=== PATIENT | female | born 1985 | race African-American/Black ===

== ENCOUNTER → 2017-01-14 | Outpatient (CLI) | payer BC | LOC: COL.RAD 08:13 | DX: K80.20 Calculus of gallbladder without cholecystitis without obstruction (principal); K21.9 Gastro-esophageal reflux disease without esophagitis ==

== ENCOUNTER 2017-03-03 08:59 | Emergency (ER) | payer BC, OTHER ==
[~2017-03-03] VITALS: Ht 165.1 cm; Wt 56.8 kg
[2017-03-03] MEDS ORDERED: ACIPHEX20 MG PO (09:12)
[2017-03-03 12:20] VITALS: BP 135/68; PULSE 81; TEMP 98.5
[2017-03-04] MEDS ORDERED: NORCO 325 MG-51 TAB PO (08:35)
== END 2017-03-03 11:27 | disposition home or self-care (01) ==
LOC: COL.ER 08:59
DX: S80.12XA Contusion of left lower leg, initial encounter (principal); S80.11XA Contusion of right lower leg, initial encounter; S40.021A Contusion of right upper arm, initial encounter; S10.91XA Abrasion of unspecified part of neck, initial encounter; S50.811A Abrasion of right forearm, initial encounter; S20.312A Abrasion of left front wall of thorax, initial encounter; S20.311A Abrasion of right front wall of thorax, initial encounter; S20.419A Abrasion of unspecified back wall of thorax, initial encounter; S00.81XA Abrasion of other part of head, initial encounter; Z23 Encounter for immunization; Y04.2XXA Assault by strike against or bumped into by another person, initial encounter; Y07.01 Husband, perpetrator of maltreatment and neglect; Y92.009 Unspecified place in unspecified non-institutional (private) residence as the place of occurrence of the external cause

== ENCOUNTER 2017-03-04 05:53 | Day surgery (SDC) | payer BC ==
[~2017-03-04] VITALS: Ht 165.1 cm; Wt 56.6 kg
[2017-03-04] VITALS (8 sets, daily range): BP systolic 91–119; BP diastolic 46–72; PULSE 66–84; TEMP 98.6–99
[~2017-03-04 05:53] MED LIST: ACIPHEX20 MG PO
[2017-03-04] MEDS ORDERED: NORCO 325 MG-51 TAB PO (08:35)
== END 2017-03-04 12:16 | disposition home or self-care (01) ==
LOC: SDCO 05:53
DX: K80.10 Calculus of gallbladder with chronic cholecystitis without obstruction (principal); K21.9 Gastro-esophageal reflux disease without esophagitis
CPT/HCPCS: J1170; J1885; J2270; J2405; J2550; J2704; J3010